=== PATIENT | female | born 1940 ===

== ENCOUNTER 2019-09-10 05:37 | Day surgery (SDC) | payer OTHER ==
[~2019-09-10 05:37] MED LIST: ASPIR 8181 MG PO; HUMLOG; LANTUS PO; LASIX20 MG PO; SYNTHROID137 MCG PO; TOPROL XL25 M1 PO; ZESTRIL20 MG PO; ZOCOR20 MG PO
== END 2019-09-10 14:40 | disposition home or self-care (01) ==
LOC: CIR.AMB 05:37
DX: N20.0 Calculus of kidney (principal)